=== PATIENT | female | born 1985 | race Caucasian/White ===

== ENCOUNTER 2017-06-06 16:54 | Emergency (ER) | payer SELFPAY ==
[~2017-06-06] VITALS: Ht 170.2 cm; Wt 65.0 kg
[2017-06-06 16:56] VITALS: BP 125/73; PULSE 88; RESP 14; TEMP 97.6; O2SAT 99
[2017-06-06] MEDS ORDERED: METF1000 PO (19:57)
[2017-06-06] MEDS ORDERED: CORTI10A RIGHT EAR (20:39)
[2017-06-06] MEDS ORDERED: AUGM875T3 PO (20:39)
--- NOTE | 2017-06-06 20:39 | PD ---
HPI Chief Complaint: ENT Complaint Time Seen by Provider: 20:26 Travel History International Travel<30 days: No Contact w/Intl Traveler<30days: No Traveled to known affect area: No History of Present Illness HPI 31-year-old female here for evaluation of right ear pain and sore throat as well as a cough. Symptoms; on for about 2 weeks. She has been using Q-tips to clean her years. States that her hearing is normal. No fevers. Pain is moderate, described as a stabbing sensation in her right ear, intermittent. PFSH Past Medical History Diabetes: Yes Patient Takes Glucophage: Yes Diminished Hearing: No Tetanus Vaccination: > 5 Years Influenza Vaccination: No ?: Not LMP: 05/29/17 : 0 Para: 0 Past Surgical History Surgical History: No Previous Surgery Social History Alcohol Use: No Tobacco Use: Yes (one pack) Substance Use: No Allergies-Medications (Allergen,Severity, Reaction): Coded Allergies: No Known Allergies (Verified Allergy, Unknown, 06/06/17) Reported Meds & Prescriptions Reported Meds & Active Scripts Active Reported Metformin (Metformin HCl) 1,000 Mg Tab 1,000 Mg PO DAILY With a meal Review of Systems Except as stated in HPI: all other systems reviewed are Neg Physical Exam Narrative GENERAL: Well-developed, well-nourished, awake, alert, comfortable, no apparent distress. SKIN: Focused skin assessment warm/dry. No rash. HEAD: Atraumatic. Normocephalic. EYES: Pupils equal and round. No scleral icterus. No injection or drainage. ENT: Mucous members pink and moist. Left tympanic membrane and external auditory canals are normal. Right external auditory canal is normal. Right tympanic membrane with small anterior/superior perforation without purulent drainage. Pharynx is normal. CARDIOVASCULAR: Regular rate and rhythm. RESPIRATORY: No accessory muscle use. Clear to auscultation. Breath sounds equal bilaterally. GASTROINTESTINAL: Abdomen soft, non-tender, nondistended. MUSCULOSKELETAL: No obvious deformities. No clubbing. No cyanosis. No edema. NEUROLOGICAL: Awake and alert. No obvious cranial nerve deficits. Motor grossly within normal limits. Normal speech. PSYCHIATRIC: Appropriate mood and affect; insight and judgment normal. Data Data Last Documented VS Vital Signs Date Time Temp Pulse Resp B/P (MAP) Pulse Ox O2 Delivery O2 Flow Rate FiO2 06/06/17 16:56 97.6 88 14 125/73 (90) 99 MDM Medical Decision Making Medical Screen Exam Complete: Yes Emergency Medical Condition: Yes Differential Diagnosis Perforated tympanic membrane, otitis media, otitis externa, viral illness Narrative Course Patient has signs and symptoms consistent with right tympanic membrane perforation. Patient reports no change in hearing. There is no purulent drainage. Plan is to start her on Cortisporin otic suspension as well as oral Augmentin and have her follow-up with an ENT specialist this week. She was advised on when to return to the emergency department. She verbalizes understanding and agreement with plan. Diagnosis Primary Impression: Perforated tympanic membrane Qualified Codes: H72.91 - Unspecified perforation of tympanic membrane, right ear Referrals: Daniel Dc MD 3 days Additional Instructions: Follow-up with ENT specialist Dr. Dc or any ENT of your choice this week. Follow-up with a primary care physician this week. Return to the emergency department for worsening symptoms or any other concerns. Scripts Amoxicillin-Clavulanate (Augmentin) 875-125 Mg Tab 1 TAB PO BID for Infection for 7 Days, #14 TAB 0 Refills Prov: Jean Claude Dixon MD 06/06/17 Kbqglbmy-Reiykmwii-YN Otic Drops (Kcxyhemz-Eeiarcbpw-HO Otic Drops) 1 % Soln 4 DROP RIGHT EAR QID for Infection for 7 Days, #1 BOTTLE 0 Refills Prov: Jean Claude Dixon MD 06/06/17 Disposition: 01 DISCHARGE HOME Condition: Stable Jean Claude Dixon MD Jun 06, 2017 20:39
== END 2017-06-06 20:52 | disposition home or self-care (01) ==
LOC: NEPD 16:54
DX: H72.91 Unspecified perforation of tympanic membrane, right ear (principal); E11.9 Type 2 diabetes mellitus without complications; Z72.0 Tobacco use; Z79.84 Long term (current) use of oral hypoglycemic drugs
CPT/HCPCS: 99284